=== PATIENT | female | born 1995 ===

== ENCOUNTER 2020-07-12 21:52 | Day surgery (SDC) | payer BC ==
[2020-07-12 22:20] VITALS: BMI 47.8
[2020-07-12] MEDS ORDERED: hydrALAZINE 20 MG/ML VIAL SLOW IVP PRN (22:49)
--- NOTE | 2020-07-12 22:51 | PDOC.LDHP ---
Labor and Delivery H&P Chief complaint: contractions HPI: EGA 39 weeks Patient of [place] 25 yo here with CTX since "yesterday", every 5-10 minutes. Good FM, no LOF, no VB. CTX are lower pelvic. Review of Systems: General: no fatigue : no V/V OB: no LOF, no recent VB Resp: no SOB Current gestational age (weeks): 39 Due date: 07/19/20 Dating criteria: last menstrual period Grav: 1 Current complications: none Abnormal US findings: No Past Medical History: none past Surgical: T&A Current medications: pre- vitamins Previous surgical history: other (Tonsils) Allergies/Adverse Reactions: Allergies Allergy/AdvReac Type Severity Reaction Status Date / Time No Known Allergies Allergy Verified 07/12/20 22:12 Social history: none - Physical Exam Vital signs reviewed and normal: yes (115/75 96 98.3 100%) General: NAD Heart: RRR Lungs: CTAB Abdomen: gravid Extremeties: no edema FHT: category 1 [place] contractions every: every 5-10 minutes or so - Vaginal Exam cm dilated: 3 Effacement: 90% Station: -2 - Assessment Latent labor at full term, 3cm - Plan Plan: observation in L&D (pain meds prn; latent labor; recheck in 2 hrs, if no change home with office check tomorrow)
[2020-07-13] MEDS ORDERED: FLU VACC QS2020-21(6MOS UP)/PF 60 MCG/0.5 ML SYRINGE IM ONE (09:00)
== END 2020-07-13 01:04 | disposition home health service (06) ==
LOC: L&D/OP 21:52
PROVIDERS: ATTEND Obstetrics & Gynecology
DX: O47.1 False labor at or after 37 completed weeks of gestation (principal); Z3A.39 39 weeks gestation of pregnancy
CPT/HCPCS: 99282

== ENCOUNTER 2020-07-13 10:30 | Inpatient (IN) | payer BC ==
[~2020-07-13 10:30] MED LIST: Bupivacaine 0.25% HCL 30 ML VIAL ONE
[2020-07-13] MEDS ORDERED: hydrALAZINE 20 MG/ML VIAL SLOW IVP PRN ×2 (10:53→15:49)
[2020-07-13] MEDS ORDERED: Ondansetron PF 4 MG/2 ML Vial IVP PRN ×3 (10:53→15:49)
[2020-07-13] MEDS ORDERED: Butorphanol Tartrate 1 MG/ML VIAL SLOW IVP PRN (10:53)
[2020-07-13] MEDS ORDERED: Lidocaine 1% (PF) 30 ML VIAL SC PRN (10:54)
[2020-07-13] MEDS ORDERED: NS / Oxytocin 40 units/1000ml 1,000 ML IV PRN (10:54)
[2020-07-13] MEDS ORDERED: HYDROcodone/Acetaminophen 5/325 mg Tablet PO PRN ×3 (10:54→15:49)
[2020-07-13] MEDS ORDERED: Ibuprofen 800 MG TAB PO PRN (10:54)
[2020-07-13] MEDS ORDERED: Penicillin G Potassium 5 MILL.UNITS VIAL ONE (10:57)
[2020-07-13 11:00] VITALS: BMI 47.8
[2020-07-13] MEDS ORDERED: Penicillin G 2.5 MILL.units 2.5 MILL.UNITS in Premix Bag 1 BAG IVPB SCH (11:00)
[2020-07-13] MEDS ORDERED: Lactated Ringer's 1,000 ML IV SCH (11:00)
[2020-07-13] MEDS ORDERED: Penicillin G Potassium 5 MILL.UNITS in Sodium Chloride 0.9% 100 ML IVPB SCH (11:00)
[2020-07-13] MEDS ORDERED: Lidocaine 1% (PF) 30 ML VIAL ONE (11:12)
[2020-07-13 11:13] LABS: Hemoglobin 12.3 g/dL (12.0-16.0); Mean Corpuscular HGB CONC 33.6 g/dL (32.0-36.0); Mean Corpuscular Volume 86.1 fL (78.0-98.0); Mean Platelet Volume 9.6 fL (7.4-10.4); Platelet Count 244 thou/uL (130-400); RBC Distribution Width 12.3 % (11.5-14.5); Red Blood Cell (RBC) Count 4.26 mill/uL (4.20-5.40); White Blood Cell (WBC) Count 17.4 thou/uL (4.8-10.8)
[2020-07-13] MEDS ORDERED: Acetaminophen 325 MG TAB PO PRN (11:30)
[2020-07-13] MEDS ORDERED: Fentanyl 100 MCG/2 ML VIAL SLOW IVP PRN (11:30)
[2020-07-13] MEDS ORDERED: Hydrocerin (Eucerin) Cream 120 gm Jar TOP PRN (11:30)
[2020-07-13] MEDS ORDERED: Naloxone HCl 0.4 mg/ml Vial IV PRN ×2 (11:30)
[2020-07-13] MEDS ORDERED: Fentanyl 4 mcg/Bup 0.1% Cadd 100 ML in Premix Bag 1 BAG EPIDURAL SCH (11:30)
[2020-07-13] MEDS ORDERED: Lactated Ringer's 500 ML IV PRN (11:30)
[2020-07-13] MEDS ORDERED: Promethazine HCl 25 MG/ML VIAL IM PRN (11:30)
[2020-07-13] MEDS ORDERED: diphenhydrAMINE 50 MG/ML VIAL IVP PRN (11:30)
[2020-07-13] MEDS ORDERED: ePHEDrine/0.9% NaCl/PF SYRINGE 50 mg/10 ml IV PRN (11:30)
[2020-07-13 12:14] LABS: HBSAg Index 0.22 S/CO (0-0.99); Hep B Surf Ag Non-Reactive S/CO (NonReactive); Syphilis Antibody Nonreactive (Nonreactive); Syphilis Antibody Index 0.03 S/CO (<1.00 Non-Reactive)
--- NOTE | 2020-07-13 12:57 | PDOC.LDHP ---
Labor and Delivery H&P Chief complaint: contractions HPI: Presents with contractions/in active labor. Current gestational age (weeks): 39 Due date: 07/19/20 Dating criteria: last menstrual period, first trimester ultrasound Grav: 1 Para: 0 Current complications: none Abnormal US findings: No Current medications: pre- vitamins Previous surgical history: none Allergies/Adverse Reactions: Allergies Allergy/AdvReac Type Severity Reaction Status Date / Time No Known Allergies Allergy Verified 07/12/20 22:12 Social history: none - Physical Exam General: breathing through contractions Heart: RRR Lungs: CTAB Abdomen: gravid Extremeties: no edema FHT: category 1 - Vaginal Exam cm dilated: 9 (arom clear) Effacement: 100% Station: 1+ - OB Labs Blood type: O RH: negative Antibody Screen: negative HIV: negative RPR: negative HEPSAg: negative 1 hour GCT: negative GBS: positive Urine drug screen: negative Rubella: non-immune - Assessment L&D Assessment: term patient in labor - Plan Plan: admit to L&D, informed consent obtained, anesthesia consult for pain management -: Admit in active labor. Anticipate .
[2020-07-13] MEDS ORDERED: hydrALAZINE 20 MG/ML VIAL ONE (13:54)
[2020-07-13] MEDS: hydrALAZINE 20 MG/ML VIAL SLOW IVP PRN ×2 (13:57→14:10)
--- NOTE | 2020-07-13 14:17 | PDOC.OPDEL ---
OB Operative/Delivery Note Delivery Dr/Surgeon: Manuel Pre-Delivery Diagnosis: active labor Procedure/Post Delivery Dx: spontaneous vaginal delivery Weeks gestation: 39 Anesthesia: epidural - Findings A Sex: female - 1 min: 8 - 5 min: 9 - Additional Findings/Plan Placenta delivered: spontaneous Repaired Obstetrical Laceration: right labial (periurethral and 2nd degree) Estimated blood loss: 350ml Compilations/Other Findings: One severe range BP immediately after delivery, treated w hydralizine, will watch for sustained BP and mgso4 if indicated. Post delivery plan: routine recovery
[2020-07-13] MEDS ORDERED: Bisacodyl 10 MG SUPP PR PRN (15:49)
[2020-07-13] MEDS ORDERED: Milk Of Magnesia 30 ML UDCUP PO PRN (15:49)
[2020-07-13] MEDS ORDERED: Preparation H Ointment 28 GM TUBE PR PRN (15:49)
[2020-07-13] MEDS ORDERED: diphenhydrAMINE 25 MG CAP PO PRN (15:49)
[2020-07-13] MEDS ORDERED: NS / Oxytocin 40 units/1000ml 1,000 ML IV SCH (15:49)
[2020-07-13] MEDS ORDERED: Benzocaine-Menthol 82.5 ML CAN TOP PRN (15:49)
[2020-07-13] MEDS ORDERED: Lanolin Ointment 7 GM TUBE TOP PRN (15:49)
[2020-07-13] MEDS: Ferrous Sulfate 325 MG TAB PO SCH (17:28)
[2020-07-13] MEDS: Docusate Calcium (SURFAK) 240 MG CAP PO SCH (20:41)
[2020-07-13] MEDS: Ibuprofen 800 MG TAB PO SCH (20:42)
[2020-07-13 21:40] LABS: SARS-CoV-2 MS2 Positive; SARS-CoV-2 N Gene Negative; SARS-CoV-2 S Gene Negative; SARS-CoV-2 by NAA Not Detected (NotDetected); SARS-CoV-2 orf1ab Negative
[2020-07-14] MEDS: Ibuprofen 800 MG TAB PO SCH ×3 (05:26→21:44)
[2020-07-14 07:51] LABS: Hemoglobin 9.9 g/dL (12.0-16.0); Mean Corpuscular Volume 87.8 fL (78.0-98.0); Mean Platelet Volume 8.8 fL (7.4-10.4); Platelet Count 182 thou/uL (130-400); RBC Distribution Width 12.5 % (11.5-14.5); Red Blood Cell (RBC) Count 3.43 mill/uL (4.20-5.40); White Blood Cell (WBC) Count 11.4 thou/uL (4.8-10.8)
--- NOTE | 2020-07-14 07:56 | PDOC.PP ---
Post Progress Note Post Day #: 1 Subjective: doing well, no concerns, minimal lochia, breast feeding well PO intake tolerated: yes Flatus: yes Ambulation: yes Vital Signs (12 hours) Temp Pulse Resp BP 07/14/20 05:15 98.8 F 83 18 119/66 07/14/20 00:20 98.1 F 99 18 114/55 L Weight Weight 270 lb - Physical Examination General: NAD Respiratory: non-labored breathing Abdominal: no distention Psychiatric: A&Ox3, normal affect Result Diagrams: 07/14/20 07:23 Additional Labs: Post Labs Hep Bs Antigen Non-Reactive S/CO (NonReactive) 07/13/20 10:59 Blood Type O NEGATIVE 07/13/20 12:23 - Assessment/Plan PPD1 doing well, plan for DC tomorrow.
[2020-07-14] MEDS ORDERED: Adacel (T-DAP) 0.5 ML SYRINGE IM ONE (09:00)
[2020-07-14] MEDS: Ferrous Sulfate 325 MG TAB PO SCH ×2 (09:15→17:43)
[2020-07-14] MEDS: Prenatal Vitamin 1 TAB PO SCH (09:15)
[2020-07-14] MEDS: Docusate Calcium (SURFAK) 240 MG CAP PO SCH ×2 (09:15→21:44)
[2020-07-15] MEDS: Ibuprofen 800 MG TAB PO SCH (05:08)
[2020-07-15 08:34] VITALS: BP 123/74; TEMP 98.8
[2020-07-15] MEDS ORDERED: Measles/Mumps/Rubella 10 MCG/0.5 ML VIAL SC ONE (09:00)
[2020-07-15] MEDS: Docusate Calcium (SURFAK) 240 MG CAP PO SCH (09:15)
[2020-07-15] MEDS: Prenatal Vitamin 1 TAB PO SCH (09:15)
[2020-07-15] MEDS: Ferrous Sulfate 325 MG TAB PO SCH (09:15)
== END 2020-07-15 11:05 | disposition home or self-care (01) | DRG 806 ==
LOC: L&D/OP 10:30 → L&D 10:49 → L&D/OP 10:53 → 3SW 16:36
PROVIDERS: ADMIT Obstetrics & Gynecology; ATTEND Obstetrics & Gynecology
PROC: 10E0XZZ Delivery of Products of Conception, External Approach (ICD-10-PCS; principal; 2020-07-13)
PROC: 0KQM0ZZ Repair Perineum Muscle, Open Approach (ICD-10-PCS; 2020-07-13)
PROC: 0UQMXZZ Repair Vulva, External Approach (ICD-10-PCS; 2020-07-13)
PROC: 30233S1 Transfusion of Nonautologous Globulin into Peripheral Vein, Percutaneous Approach (ICD-10-PCS; 2020-07-14)
DX: O26.893 Other specified pregnancy related conditions, third trimester (principal); O98.82 Other maternal infectious and parasitic diseases complicating childbirth; Z37.0 Single live birth; B95.1 Streptococcus, group B, as the cause of diseases classified elsewhere; Z67.91 Unspecified blood type, Rh negative; Z3A.39 39 weeks gestation of pregnancy; O70.1 Second degree perineal laceration during delivery; O71.82 Other specified trauma to perineum and vulva; O69.81X0 Labor and delivery complicated by cord around neck, without compression, not applicable or unspecified
CPT/HCPCS: 36415; 51702; 85027; 85461; 86780; 86850; 86870; 86900; 86901; 87340; 87635; 90384; 90707; 96372; 99282; J0360; J2540; S0020; U0003